=== PATIENT | female | born 1950 | race African-American/Black ===

== ENCOUNTER 2019-12-08 12:18 | Emergency (ER) | payer OTHER ==
[~2019-12-08] VITALS: Ht 162.6 cm; Wt 77.9 kg
[2019-12-08 12:19] VITALS: BP 134/69
[2019-12-08] MEDS ORDERED: GLIP10TA PO (13:06)
[2019-12-08] MEDS ORDERED: selenium PO (13:06)
[2019-12-08] MEDS ORDERED: D 50CAP2 PO (13:06)
[2019-12-08] MEDS ORDERED: ANAS1TAB2 PO (13:06)
[2019-12-08] MEDS ORDERED: JANU100T PO (13:06)
[2019-12-08] MEDS ORDERED: METF10004 PO (13:06)
[2019-12-08] MEDS ORDERED: OMEG1CAP16 PO (13:06)
[2019-12-08] MEDS ORDERED: ALPH600C PO (13:06)
[2019-12-08] MEDS ORDERED: [UNRECOGNIZED DRUG - CODE] PO (13:06)
[2019-12-08] MEDS ORDERED: IBUPROFEN 800 MG TAB PO ONE (13:30)
[2019-12-08 13:54] LABS: BASO % 0.5 % (0.0-1.0); EOS # 0.1 10^3/uL (0.0-0.5); EOS % 1.1 % (0.0-3.0); HEMATOCRIT 36.7 % (36.0-47.0); HEMOGLOBIN 11.5 g/dl (12.0-15.5); LYMPH % 21.8 % (24.0-44.0); MEAN CORPUSCULAR HEMOGLOBIN 27.8 pg (27.0-33.0); MEAN CORPUSCULAR HGB CONC 31.3 g/dl (32.0-36.5); MEAN CORPUSCULAR VOLUME 88.6 fl (80.0-96.0); MONO # 0.6 10^3/uL (0.0-0.8); MONO % 12.6 % (0.0-5.0); NEUTROPHILS # 2.8 10^3/uL (1.5-8.5); NEUTROPHILS % 63.3 % (36.0-66.0); PLATELET COUNT, AUTOMATED 181 10^3/uL (150-450); RED BLOOD COUNT 4.14 10^6/uL (4.00-5.40); WHITE BLOOD COUNT 4.4 10^3/uL (4.0-10.0)
[2019-12-08 14:24] LABS: ALBUMIN 3.7 GM/DL (3.2-5.2); ALT/SGPT 14 U/L (12-78); BILIRUBIN,DIRECT 0.2 MG/DL (0.0-0.2); BILIRUBIN,TOTAL 1.1 MG/DL (0.2-1.0); BLOOD UREA NITROGEN 11 MG/DL (7-18); CALCIUM LEVEL 9.8 MG/DL (8.8-10.2); CARBON DIOXIDE LEVEL 29 MEQ/L (21-32); CHLORIDE LEVEL 101 MEQ/L (98-107); CREATININE FOR GFR 0.85 MG/DL (0.55-1.30); GLOMERULAR FILTRATION RATE > 60.0 (>45); GLUCOSE, FASTING 205 MG/DL (70-100); POTASSIUM SERUM 3.9 MEQ/L (3.5-5.1); SODIUM LEVEL 136 MEQ/L (136-145); TOTAL PROTEIN 8.1 GM/DL (6.4-8.2)
[2019-12-08] MEDS ORDERED: NYST50SS PO (14:30)
[2019-12-08] MEDS ORDERED: VALT1TAB PO (14:30)
== END 2019-12-08 14:41 | disposition home or self-care (01) ==
LOC: M ED 12:18
DX: B02.9 Zoster without complications (principal); B37.0 Candidal stomatitis; E11.9 Type 2 diabetes mellitus without complications; Z85.3 Personal history of malignant neoplasm of breast; Z79.84 Long term (current) use of oral hypoglycemic drugs; Z79.899 Other long term (current) drug therapy

== ENCOUNTER → 2020-03-09 | Outpatient (CLI) | payer MEDICARE, OTHER ==
[~2020-03-09] MED LIST: ALPH600C PO; ANAS1TAB2 PO; D 50CAP2 PO; GLIP10TA PO; JANU100T PO; METF10004 PO; NYST50SS PO; OMEG1CAP16 PO; VALT1TAB PO; [UNRECOGNIZED DRUG - CODE] PO; selenium PO
== END ==
LOC: M LABSMTC 10:58
PROVIDERS: ATTEND Anesthesiology
DX: Z01.812 Encounter for preprocedural laboratory examination (principal); Z20.828 Contact with and (suspected) exposure to other viral communicable diseases

== ENCOUNTER 2020-03-14 10:15 | Day surgery (SDC) | payer MEDICARE, OTHER ==
[~2020-03-14] VITALS: Ht 162.6 cm; Wt 82.1 kg
[~2020-03-14 10:15] MED LIST changes: +BSS IRR 500ML/OMIDRIA 4ML IRR BAG (OR ONLY) As Ordered ONE; +CEFUROXIME 1MG/0.1ML INTRACAMERAL INJ As Ordered ONE; +DUOVISC (0.50ML VISCOAT/0.55ML PROVISC) OPHTH KIT As Ordered ONE; +OFLOXACIN 0.3 % (OCUFLOX) OPTH SOL 5ML OS ONE; +PHENYLEPHRINE 2.5% OPHTH SOL 2ML OS ONE; +POVIDONE-IODINE 5% OPHTH PREP SOL 30ML As Ordered ONE; +PROPARACAINE 0.5% OPHTH SOL 15ML OS ONE; +TROPICAMIDE 1% OPHTH SOLN 2ML OS ONE
[2020-03-14] MEDS ORDERED: fentaNYL 100 MCG/2 ML INJECTION (J3010) As Ordered ONE (10:53)
[2020-03-14] MEDS ORDERED: MIDAZOLAM INJ 2MG/2ML VIAL (J2250 PER 1MG) As Ordered ONE (10:53)
[2020-03-14 14:48] VITALS: BP 137/74
--- NOTE | 2020-03-15 08:38 | RO ---
OPERATIVE NOTE DATE OF OPERATION: 03/14/2020 PREOPERATIVE DIAGNOSIS: 1. Visually significant nuclear sclerotic cataract, left eye. POSTOPERATIVE DIAGNOSIS: 1. Visually significant nuclear sclerotic cataract, left eye. PROCEDURE: 1. Cataract extraction with use of phacoemulsification, and placement of intraocular lens, AU00T0 22.0, left eye. SURGEON: Patrick Keith DO ANESTHESIA: Local (Omidria with MAC) COMPLICATIONS: None POSTOPERATIVE CONDITION: Stable INDICATIONS FOR SURGERY: 1. Blurred vision affecting patient's activities of daily living. DESCRIPTION OF PROCEDURE: The patient was seen in the preoperative area and properly identified. The correct operative eye was identified and marked. The patient received topical anesthetic, antibiotics, and topical dilating drops. The patient was then transferred to the operating room. The correct side was re-identified and a time-out was performed. The eye was prepped and draped in a sterile fashion. The eyelids were isolated with Tegaderm tape and the lids were held open with an adjustable speculum. A 1.0mm paracentesis incision was made. Omidria was then injected into the anterior chamber. Viscoelastic was then injected into the anterior chamber through the paracentesis. Using a 2.4mm sharp-tipped keratome, the anterior chamber was entered via a temporal clear cornea incision. A continuous curvilinear capsulorrhexis was created with Utrata forceps. Hydrodissection was performed with BSS on a blunt cannula until the nucleus was able to rotate freely. The crystalline lens was phacoemulsified and aspirated. Irrigation/aspiration was used to remove the cortical material Cohesive viscoelastic was placed into the capsular bag to deepen it. The implant was placed into the capsular bag and allowed to unfold. Placement was confirmed by visualizing the anterior capsulorrhexis. Irrigation/aspiration was used to remove the viscoelastic. The clear corneal incision was hydrated with BSS on a blunt cannula. The lens was well positioned. Intracameral antibiotic was injected into the anterior chamber. The incisions were then tested for leaks and found to be negative. The eye was then palpated for appropriate pressure and adjusted accordingly with BSS. The eyelid speculum was then carefully removed. A shield was placed over the eye. The patient tolerated the procedure well and was discharge to the recovery unit in a stable condition. REID
== END 2020-03-14 15:30 | disposition home or self-care (01) ==
LOC: M SDC 10:15
PROVIDERS: ATTEND Ophthalmology
DX: H25.12 Age-related nuclear cataract, left eye (principal); E11.9 Type 2 diabetes mellitus without complications; M06.9 Rheumatoid arthritis, unspecified; Z85.3 Personal history of malignant neoplasm of breast; Z92.21 Personal history of antineoplastic chemotherapy; Z92.3 Personal history of irradiation; Z79.899 Other long term (current) drug therapy
CPT/HCPCS: 66984; J1097; J2250; J3010; V2632

== ENCOUNTER → 2020-03-16 | Outpatient (CLI) | payer MEDICARE, OTHER ==
[~2020-03-16] MED LIST changes: -BSS IRR 500ML/OMIDRIA 4ML IRR BAG (OR ONLY) As Ordered ONE; -CEFUROXIME 1MG/0.1ML INTRACAMERAL INJ As Ordered ONE; -DUOVISC (0.50ML VISCOAT/0.55ML PROVISC) OPHTH KIT As Ordered ONE; -OFLOXACIN 0.3 % (OCUFLOX) OPTH SOL 5ML OS ONE; -PHENYLEPHRINE 2.5% OPHTH SOL 2ML OS ONE; -POVIDONE-IODINE 5% OPHTH PREP SOL 30ML As Ordered ONE; -PROPARACAINE 0.5% OPHTH SOL 15ML OS ONE; -TROPICAMIDE 1% OPHTH SOLN 2ML OS ONE
== END ==
LOC: M LABSMTC 09:30
PROVIDERS: ATTEND Anesthesiology
DX: Z01.812 Encounter for preprocedural laboratory examination (principal); Z20.822 Contact with and (suspected) exposure to COVID-19

== ENCOUNTER 2020-03-21 09:21 | Day surgery (SDC) | payer MEDICARE, OTHER ==
[~2020-03-21] VITALS: Ht 160 cm; Wt 82.6 kg
[~2020-03-21 09:21] MED LIST changes: +CEFUROXIME 1MG/0.1ML INTRACAMERAL INJ As Ordered ONE; +DUOVISC (0.50ML VISCOAT/0.55ML PROVISC) OPHTH KIT As Ordered ONE; +MIDAZOLAM INJ 2MG/2ML VIAL (J2250 PER 1MG) As Ordered ONE; +OFLOXACIN 0.3 % (OCUFLOX) OPTH SOL 5ML OD ONE; +PHENYLEPHRINE 2.5% OPHTH SOL 2ML OD ONE; +POVIDONE-IODINE 5% OPHTH PREP SOL 30ML As Ordered ONE; +PROPARACAINE 0.5% OPHTH SOL 15ML OD ONE; +TROPICAMIDE 1% OPHTH SOLN 2ML OD ONE; +fentaNYL 100 MCG/2 ML INJECTION (J3010) As Ordered ONE
[2020-03-21] MEDS ORDERED: BSS IRR 500ML/OMIDRIA 4ML IRR BAG (OR ONLY) As Ordered ONE (11:00)
[2020-03-21 13:20] VITALS: BP 139/86
--- NOTE | 2020-03-22 07:45 | RO ---
OPERATIVE NOTE PREOPERATIVE DIAGNOSIS: 1. Visually significant nuclear sclerotic cataract, right eye. POSTOPERATIVE DIAGNOSIS: 1. Visually significant nuclear sclerotic cataract, right eye. PROCEDURE: 1. Cataract extraction with use of phacoemulsification, and placement of intraocular lens, AU00T0, D 22.0, right eye. SURGEON: Patrick Keith DO ANESTHESIA: Local (Omidria with MAC) COMPLICATIONS: None POSTOPERATIVE CONDITION: Stable INDICATIONS FOR SURGERY: 1. Blurred vision affecting patient's activities of daily living. DESCRIPTION OF PROCEDURE: The patient was seen in the preoperative area and properly identified. The correct operative eye was identified and marked. The patient received topical anesthetic, antibiotics, and topical dilating drops. The patient was then transferred to the operating room. The correct side was re-identified and a time-out was performed. The eye was prepped and draped in a sterile fashion. The eyelids were isolated with Tegaderm tape and the lids were held open with an adjustable speculum. A 1.0mm paracentesis incision was made. Omidria was then injected into the anterior chamber. Viscoelastic was then injected into the anterior chamber through the paracentesis. Using a 2.4mm sharp-tipped keratome, the anterior chamber was entered via a temporal clear cornea incision. A continuous curvilinear capsulorrhexis was created with Utrata forceps. Hydrodissection was performed with BSS on a blunt cannula until the nucleus was able to rotate freely. The crystalline lens was phacoemulsified and aspirated. Irrigation/aspiration was used to remove the cortical material Cohesive viscoelastic was placed into the capsular bag to deepen it. The implant was placed into the capsular bag and allowed to unfold. Placement was confirmed by visualizing the anterior capsulorrhexis. Irrigation/aspiration was used to remove the viscoelastic. The clear corneal incision was hydrated with BSS on a blunt cannula. The lens was well positioned. Intracameral antibiotic was injected into the anterior chamber. The incisions were then tested for leaks and found to be negative. The eye was then palpated for appropriate pressure and adjusted accordingly with BSS. The eyelid speculum was then carefully removed. A shield was placed over the eye. The patient tolerated the procedure well and was discharge to the recovery unit in a stable condition. REID
== END 2020-03-21 14:05 | disposition home or self-care (01) ==
LOC: M SDC 09:21
PROVIDERS: ATTEND Ophthalmology
DX: H25.11 Age-related nuclear cataract, right eye (principal); E11.9 Type 2 diabetes mellitus without complications; M06.9 Rheumatoid arthritis, unspecified; Z85.3 Personal history of malignant neoplasm of breast; Z92.21 Personal history of antineoplastic chemotherapy; Z92.3 Personal history of irradiation; Z79.84 Long term (current) use of oral hypoglycemic drugs; Z79.899 Other long term (current) drug therapy
CPT/HCPCS: 66984; J1097; J2250; J3010; V2632

== ENCOUNTER → 2020-05-17 | Outpatient (CLI) | payer OTHER ==
[~2020-05-17] MED LIST changes: -CEFUROXIME 1MG/0.1ML INTRACAMERAL INJ As Ordered ONE; -DUOVISC (0.50ML VISCOAT/0.55ML PROVISC) OPHTH KIT As Ordered ONE; +GLYCCAP PO; -MIDAZOLAM INJ 2MG/2ML VIAL (J2250 PER 1MG) As Ordered ONE; -OFLOXACIN 0.3 % (OCUFLOX) OPTH SOL 5ML OD ONE; -PHENYLEPHRINE 2.5% OPHTH SOL 2ML OD ONE; -POVIDONE-IODINE 5% OPHTH PREP SOL 30ML As Ordered ONE; -PROPARACAINE 0.5% OPHTH SOL 15ML OD ONE; -TROPICAMIDE 1% OPHTH SOLN 2ML OD ONE; +TRUL0.5I SC; -fentaNYL 100 MCG/2 ML INJECTION (J3010) As Ordered ONE
--- NOTE | 2020-05-24 09:44 | REPMRS ---
Patient History The patient states she had a clinical breast exam in 05/2020 Patient is postmenopausal, has history of breast cancer at age 67, has history of cancer in the left breast at age 67, and had previous chemotherapy at age 67. Family history of breast cancer at age 51 in sister, prostate cancer at age 68 in brother. Malignant mastectomy of the left breast, 2019. Radiation therapy of the left breast. Digital Woman Screen Mammo: May 17, 2020 - Exam #: [id number] CC and MLO view(s) were taken of the right breast. Technologist: Traci Hdz, Technologist Prior study comparison: August 17, 2019, right breast diagnostic unilateral mammo, performed at [facility]. FINDINGS: There are scattered fibroglandular densities. There has been no change in the appearance of the right breast parenchyma in the interval since the prior examination. No mass, architectural distortion, or microcalcific grouping has developed. No suspicious finding. 3-D tomosynthesis shows no additional findings. Assessment: BI-RADS/ACR category 2 mammogram. Benign Findings. Recommendation Routine screening mammogram of the right breast in 1 year. This mammogram was interpreted with the aid of an FDA-approved computer-aided dectection system. Electronically Signed By: Skyler Combs MD 05/24/20 0943
== END ==
LOC: M WHC 12:00
PROVIDERS: ATTEND Specialist
DX: Z12.31 Encounter for screening mammogram for malignant neoplasm of breast (principal); N64.89 Other specified disorders of breast; Z85.3 Personal history of malignant neoplasm of breast; Z80.3 Family history of malignant neoplasm of breast; Z90.12 Acquired absence of left breast and nipple; Z92.21 Personal history of antineoplastic chemotherapy

== ENCOUNTER → 2020-06-11 | Outpatient (REF) | payer OTHER ==
[2020-06-11 18:10] LABS: BASO % 0.6 % (0.0-1.0); EOS # 0.1 10^3/uL (0.0-0.5); EOS % 2.1 % (0.0-3.0); HEMATOCRIT 36.3 % (36.0-47.0); HEMOGLOBIN 11.1 g/dl (12.0-15.5); LYMPH # 1.5 10^3/uL (1.5-5.0); LYMPH % 31.5 % (24.0-44.0); MEAN CORPUSCULAR HEMOGLOBIN 27.5 pg (27.0-33.0); MEAN CORPUSCULAR HGB CONC 30.6 g/dl (32.0-36.5); MEAN CORPUSCULAR VOLUME 89.9 fl (80.0-96.0); MONO # 0.5 10^3/uL (0.0-0.8); MONO % 10.5 % (2.0-8.0); NEUTROPHILS # 2.6 10^3/uL (1.5-8.5); NEUTROPHILS % 54.7 % (36.0-66.0); PLATELET COUNT, AUTOMATED 201 10^3/uL (150-450); RED BLOOD COUNT 4.04 10^6/uL (4.00-5.40); WHITE BLOOD COUNT 4.8 10^3/uL (4.0-10.0)
[2020-06-11 18:12] LABS: APPEARANCE, URINE CLEAR (CLEAR); BACTERIA, URINE AUTO NEGATIVE (NEGATIVE); BILIRUBIN, URINE AUTO NEGATIVE (NEGATIVE); BLOOD, URINE BLOOD NEGATIVE (NEGATIVE); COLOR, URINE YELLOW (YELLOW); GLUCOSE, URINE (UA) AUTO 2+ mg/dL (NEGATIVE); KETONE, URINE AUTO NEGATIVE (NEGATIVE); LEUKOCYTE ESTERASE, URINE AUTO NEGATIVE (NEGATIVE); NITRITE, URINE AUTO NEGATIVE (NEGATIVE); PROTEIN, URINE AUTO NEGATIVE (NEGATIVE); RBC, URINE AUTO 0 /HPF (0-3); SPECIFIC GRAVITY URINE AUTO 1.024 (1.002-1.035); SQUAMOUS EPITHELIAL CELL UR AU 0 /HPF (0-6); UROBILINOGEN, URINE AUTO 0.2 mg/dL (0.0-2.0); WBC, URINE AUTO 1 /HPF (0-3)
[2020-06-11 18:41] LABS: ERYTHROCYTE SEDIMENTATION RATE 60 mm/hr (0-30)
[2020-06-11 18:42] LABS: TOTAL PROTEIN,RANDOM URINE 13.1 MG/DL (0.0-12.0)
[2020-06-11 18:59] LABS: ALBUMIN 3.9 GM/DL (3.2-5.2); ALT/SGPT 15 U/L (12-78); BILIRUBIN,DIRECT 0.1 MG/DL (0.0-0.2); BILIRUBIN,TOTAL 0.5 MG/DL (0.2-1.0); BLOOD UREA NITROGEN 14 MG/DL (7-18); C REACTIVE PROTEIN QUANTITATIV 1.33 MG/DL (0.00-0.30); CALCIUM LEVEL 9.8 MG/DL (8.8-10.2); CARBON DIOXIDE LEVEL 30 MEQ/L (21-32); CHLORIDE LEVEL 104 MEQ/L (98-107); COMPLEMENT C3 135 MG/DL (90-180); COMPLEMENT C4 39 MG/DL (10-40); CREATININE FOR GFR 0.76 MG/DL (0.55-1.30); GLOMERULAR FILTRATION RATE > 60.0 (>45); GLUCOSE, FASTING 194 MG/DL (70-100); POTASSIUM SERUM 4.2 MEQ/L (3.5-5.1); RHEUMATOID FACTOR QUANT < 10.0 IU/ML (<15.0); SODIUM LEVEL 137 MEQ/L (136-145); TOTAL PROTEIN 8.3 GM/DL (6.4-8.2)
[2020-06-13 12:31] LABS: DRVV SCREEN 40.2 SEC
== END ==
LOC: M SFHCRHEU 15:16
PROVIDERS: ATTEND Internal Medicine
DX: M06.4 Inflammatory polyarthropathy (principal)

== ENCOUNTER → 2020-08-15 | Outpatient (CLI) | payer OTHER, MEDICARE ==
[~2020-08-15] MED LIST changes: +ATOR40TA75 PO; +LEFL20TA10 PO; +SELE100T PO
[2020-08-15 11:37] LABS: BASO % 0.7 % (0.0-1.0); EOS # 0.1 10^3/uL (0.0-0.5); EOS % 2.2 % (0.0-3.0); HEMATOCRIT 36.8 % (36.0-47.0); LYMPH # 1.5 10^3/uL (1.5-5.0); LYMPH % 34.4 % (24.0-44.0); MEAN CORPUSCULAR HEMOGLOBIN 27.4 pg (27.0-33.0); MEAN CORPUSCULAR HGB CONC 29.9 g/dl (32.0-36.5); MEAN CORPUSCULAR VOLUME 91.5 fl (80.0-96.0); MONO # 0.4 10^3/uL (0.0-0.8); MONO % 8.8 % (2.0-8.0); NEUTROPHILS # 2.4 10^3/uL (1.5-8.5); PLATELET COUNT, AUTOMATED 210 10^3/uL (150-450); RED BLOOD COUNT 4.02 10^6/uL (4.00-5.40); WHITE BLOOD COUNT 4.5 10^3/uL (4.0-10.0)
[2020-08-15 12:38] LABS: ERYTHROCYTE SEDIMENTATION RATE 52 mm/hr (0-30)
[2020-08-15 13:26] LABS: ALBUMIN 3.5 GM/DL (3.2-5.2); ALT/SGPT 19 U/L (12-78); BILIRUBIN,DIRECT 0.2 MG/DL (0.0-0.2); BILIRUBIN,TOTAL 0.8 MG/DL (0.2-1.0); BLOOD UREA NITROGEN 12 MG/DL (7-18); C REACTIVE PROTEIN QUANTITATIV 0.73 MG/DL (0.00-0.30); CALCIUM LEVEL 9.3 MG/DL (8.8-10.2); CARBON DIOXIDE LEVEL 30 MEQ/L (21-32); CHLORIDE LEVEL 104 MEQ/L (98-107); CREATININE FOR GFR 0.68 MG/DL (0.55-1.30); GLOMERULAR FILTRATION RATE > 60.0 (>45); GLUCOSE, FASTING 181 MG/DL (70-100); POTASSIUM SERUM 4.2 MEQ/L (3.5-5.1); SODIUM LEVEL 139 MEQ/L (136-145); TOTAL PROTEIN 7.7 GM/DL (6.4-8.2)
== END ==
LOC: M WUC 09:16
PROVIDERS: ATTEND Internal Medicine
DX: M06.9 Rheumatoid arthritis, unspecified (principal)

== ENCOUNTER → 2020-09-12 | Outpatient (CLI) | payer MEDICARE, OTHER ==
[~2020-09-12] MED LIST changes: +ARIM1TAB5 PO; +LEFL10TA12 PO; -LEFL20TA10 PO
[2020-09-12 19:35] LABS: BASO % 0.4 % (0.0-1.0); EOS # 0.1 10^3/uL (0.0-0.5); EOS % 2.2 % (0.0-3.0); HEMATOCRIT 35.9 % (36.0-47.0); LYMPH # 1.5 10^3/uL (1.5-5.0); LYMPH % 31.2 % (24.0-44.0); MEAN CORPUSCULAR HEMOGLOBIN 27.6 pg (27.0-33.0); MEAN CORPUSCULAR HGB CONC 30.6 g/dl (32.0-36.5); MONO # 0.5 10^3/uL (0.0-0.8); MONO % 9.7 % (2.0-8.0); NEUTROPHILS # 2.8 10^3/uL (1.5-8.5); NEUTROPHILS % 56.3 % (36.0-66.0); PLATELET COUNT, AUTOMATED 200 10^3/uL (150-450); RED BLOOD COUNT 3.99 10^6/uL (4.00-5.40); WHITE BLOOD COUNT 4.9 10^3/uL (4.0-10.0)
[2020-09-12 19:57] LABS: ALBUMIN 3.5 GM/DL (3.2-5.2); ALT/SGPT 20 U/L (12-78); BILIRUBIN,DIRECT 0.1 MG/DL (0.0-0.2); BILIRUBIN,TOTAL 0.5 MG/DL (0.2-1.0); BLOOD UREA NITROGEN 10 MG/DL (7-18); C REACTIVE PROTEIN QUANTITATIV 0.49 MG/DL (0.00-0.30); CALCIUM LEVEL 9.5 MG/DL (8.8-10.2); CARBON DIOXIDE LEVEL 31 MEQ/L (21-32); CHLORIDE LEVEL 104 MEQ/L (98-107); GLOMERULAR FILTRATION RATE > 60.0 (>45); GLUCOSE, FASTING 216 MG/DL (70-100); POTASSIUM SERUM 4.5 MEQ/L (3.5-5.1); SODIUM LEVEL 141 MEQ/L (136-145); TOTAL PROTEIN 7.7 GM/DL (6.4-8.2)
[2020-09-12 21:40] LABS: ERYTHROCYTE SEDIMENTATION RATE 46 mm/hr (0-30)
== END ==
LOC: M WUC 15:45
PROVIDERS: ATTEND Internal Medicine
DX: M06.9 Rheumatoid arthritis, unspecified (principal)

== ENCOUNTER → 2020-10-10 | Outpatient (CLI) | payer MEDICARE ==
[~2020-10-10] MED LIST changes: -ARIM1TAB5 PO; -LEFL10TA12 PO; +LEFL20TA10 PO
[2020-10-10 19:06] LABS: BASO % 0.4 % (0.0-1.0); EOS # 0.1 10^3/uL (0.0-0.5); HEMATOCRIT 36.9 % (36.0-47.0); HEMOGLOBIN 11.3 g/dl (12.0-15.5); LYMPH # 1.5 10^3/uL (1.5-5.0); LYMPH % 29.4 % (24.0-44.0); MEAN CORPUSCULAR HEMOGLOBIN 27.5 pg (27.0-33.0); MEAN CORPUSCULAR HGB CONC 30.6 g/dl (32.0-36.5); MEAN CORPUSCULAR VOLUME 89.8 fl (80.0-96.0); MONO # 0.4 10^3/uL (0.0-0.8); MONO % 8.5 % (2.0-8.0); NEUTROPHILS % 59.1 % (36.0-66.0); PLATELET COUNT, AUTOMATED 220 10^3/uL (150-450); RED BLOOD COUNT 4.11 10^6/uL (4.00-5.40)
[2020-10-10 19:12] LABS: ALBUMIN 3.4 GM/DL (3.2-5.2); ALT/SGPT 20 U/L (12-78); BILIRUBIN,DIRECT 0.2 MG/DL (0.0-0.2); BILIRUBIN,TOTAL 0.6 MG/DL (0.2-1.0); BLOOD UREA NITROGEN 11 MG/DL (7-18); C REACTIVE PROTEIN QUANTITATIV 0.62 MG/DL (0.00-0.30); CALCIUM LEVEL 8.8 MG/DL (8.8-10.2); CARBON DIOXIDE LEVEL 32 MEQ/L (21-32); CHLORIDE LEVEL 102 MEQ/L (98-107); CREATININE FOR GFR 0.83 MG/DL (0.55-1.30); GLOMERULAR FILTRATION RATE > 60.0 (>45); GLUCOSE, FASTING 316 MG/DL (70-100); POTASSIUM SERUM 4.2 MEQ/L (3.5-5.1); SODIUM LEVEL 137 MEQ/L (136-145); TOTAL PROTEIN 7.4 GM/DL (6.4-8.2)
[2020-10-10 19:34] LABS: ERYTHROCYTE SEDIMENTATION RATE 48 mm/hr (0-30)
== END ==
LOC: M WUC 15:25
PROVIDERS: ATTEND Internal Medicine
DX: M06.9 Rheumatoid arthritis, unspecified (principal)

== ENCOUNTER → 2020-11-15 | Outpatient (CLI) | payer MEDICARE ==
[2020-11-15 19:53] LABS: BASO % 0.4 % (0.0-1.0); EOS # 0.1 10^3/uL (0.0-0.5); EOS % 1.5 % (0.0-3.0); HEMATOCRIT 36.8 % (36.0-47.0); HEMOGLOBIN 11.1 g/dl (12.0-15.5); LYMPH # 1.6 10^3/uL (1.5-5.0); LYMPH % 34.2 % (24.0-44.0); MEAN CORPUSCULAR HEMOGLOBIN 27.2 pg (27.0-33.0); MEAN CORPUSCULAR HGB CONC 30.2 g/dl (32.0-36.5); MEAN CORPUSCULAR VOLUME 90.2 fl (80.0-96.0); MONO # 0.5 10^3/uL (0.0-0.8); MONO % 10.4 % (2.0-8.0); NEUTROPHILS # 2.5 10^3/uL (1.5-8.5); NEUTROPHILS % 53.1 % (36.0-66.0); PLATELET COUNT, AUTOMATED 197 10^3/uL (150-450); RED BLOOD COUNT 4.08 10^6/uL (4.00-5.40); WHITE BLOOD COUNT 4.7 10^3/uL (4.0-10.0)
[2020-11-15 20:14] LABS: ERYTHROCYTE SEDIMENTATION RATE 45 mm/hr (0-30)
[2020-11-15 20:19] LABS: ALBUMIN 3.6 GM/DL (3.2-5.2); ALT/SGPT 19 U/L (12-78); BILIRUBIN,DIRECT 0.2 MG/DL (0.0-0.2); BILIRUBIN,TOTAL 0.8 MG/DL (0.2-1.0); BLOOD UREA NITROGEN 11 MG/DL (7-18); C REACTIVE PROTEIN QUANTITATIV 0.56 MG/DL (0.00-0.30); CALCIUM LEVEL 9.3 MG/DL (8.8-10.2); CARBON DIOXIDE LEVEL 33 MEQ/L (21-32); CHLORIDE LEVEL 103 MEQ/L (98-107); CREATININE FOR GFR 0.75 MG/DL (0.55-1.30); GLOMERULAR FILTRATION RATE > 60.0 (>45); GLUCOSE, FASTING 258 MG/DL (70-100); POTASSIUM SERUM 3.9 MEQ/L (3.5-5.1); SODIUM LEVEL 138 MEQ/L (136-145); TOTAL PROTEIN 7.6 GM/DL (6.4-8.2)
== END ==
LOC: M WUC 14:59
PROVIDERS: ATTEND Internal Medicine
DX: M06.9 Rheumatoid arthritis, unspecified (principal)

== ENCOUNTER → 2020-12-03 | Outpatient (REF) | payer MEDICARE, OTHER ==
[~2020-12-03] MED LIST changes: +ARIM1TAB5 PO; +LEFL10TA12 PO; -LEFL20TA10 PO
[2020-12-03 16:48] LABS: BASO % 0.4 % (0.0-1.0); EOS # 0.1 10^3/uL (0.0-0.5); EOS % 1.7 % (0.0-3.0); HEMOGLOBIN 11.6 g/dl (12.0-15.5); LYMPH # 1.5 10^3/uL (1.5-5.0); LYMPH % 31.3 % (24.0-44.0); MEAN CORPUSCULAR HEMOGLOBIN 26.9 pg (27.0-33.0); MEAN CORPUSCULAR HGB CONC 30.5 g/dl (32.0-36.5); MEAN CORPUSCULAR VOLUME 88.2 fl (80.0-96.0); MONO # 0.4 10^3/uL (0.0-0.8); NEUTROPHILS # 2.8 10^3/uL (1.5-8.5); NEUTROPHILS % 58.2 % (36.0-66.0); PLATELET COUNT, AUTOMATED 201 10^3/uL (150-450); RED BLOOD COUNT 4.31 10^6/uL (4.00-5.40); WHITE BLOOD COUNT 4.7 10^3/uL (4.0-10.0)
[2020-12-03 17:11] LABS: ALBUMIN 3.7 GM/DL (3.2-5.2); ALT/SGPT 20 U/L (12-78); BILIRUBIN,DIRECT 0.2 MG/DL (0.0-0.2); BILIRUBIN,TOTAL 0.8 MG/DL (0.2-1.0); BLOOD UREA NITROGEN 11 MG/DL (7-18); C REACTIVE PROTEIN QUANTITATIV 0.86 MG/DL (0.00-0.30); CALCIUM LEVEL 9.9 MG/DL (8.8-10.2); CARBON DIOXIDE LEVEL 33 MEQ/L (21-32); CHLORIDE LEVEL 100 MEQ/L (98-107); CREATININE FOR GFR 0.89 MG/DL (0.55-1.30); GLOMERULAR FILTRATION RATE > 60.0 (>45); GLUCOSE, FASTING 317 MG/DL (70-100); SODIUM LEVEL 141 MEQ/L (136-145); TOTAL PROTEIN 8.1 GM/DL (6.4-8.2)
[2020-12-03 17:21] LABS: ERYTHROCYTE SEDIMENTATION RATE 49 mm/hr (0-30)
== END ==
LOC: M SFHCRHEU 12:09
PROVIDERS: ATTEND Internal Medicine
DX: M06.9 Rheumatoid arthritis, unspecified (principal)
CPT/HCPCS: 80048; 80076; 85025; 85652; 86140; G0463

== ENCOUNTER → 2021-01-09 | Outpatient (CLI) | payer OTHER, MEDICARE ==
[2021-01-09 15:55] LABS: BASO % 0.5 % (0.0-1.0); EOS # 0.1 10^3/uL (0.0-0.5); EOS % 1.7 % (0.0-3.0); HEMATOCRIT 38.7 % (36.0-47.0); HEMOGLOBIN 11.6 g/dl (12.0-15.5); LYMPH # 1.8 10^3/uL (1.5-5.0); LYMPH % 42.9 % (24.0-44.0); MEAN CORPUSCULAR HEMOGLOBIN 26.7 pg (27.0-33.0); MEAN CORPUSCULAR VOLUME 89.2 fl (80.0-96.0); MONO # 0.5 10^3/uL (0.0-0.8); MONO % 12.3 % (2.0-8.0); NEUTROPHILS # 1.8 10^3/uL (1.5-8.5); NEUTROPHILS % 42.1 % (36.0-66.0); PLATELET COUNT, AUTOMATED 187 10^3/uL (150-450); RED BLOOD COUNT 4.34 10^6/uL (4.00-5.40); WHITE BLOOD COUNT 4.2 10^3/uL (4.0-10.0)
[2021-01-09 16:22] LABS: ALBUMIN 3.7 GM/DL (3.2-5.2); ALT/SGPT 19 U/L (12-78); BILIRUBIN,DIRECT 0.3 MG/DL (0.0-0.2); BLOOD UREA NITROGEN 10 MG/DL (7-18); C REACTIVE PROTEIN QUANTITATIV 0.39 MG/DL (0.00-0.30); CALCIUM LEVEL 9.8 MG/DL (8.8-10.2); CARBON DIOXIDE LEVEL 30 MEQ/L (21-32); CHLORIDE LEVEL 103 MEQ/L (98-107); CREATININE FOR GFR 0.84 MG/DL (0.55-1.30); GLOMERULAR FILTRATION RATE > 60.0 (>45); GLUCOSE, FASTING 245 MG/DL (70-100); POTASSIUM SERUM 4.4 MEQ/L (3.5-5.1); SODIUM LEVEL 137 MEQ/L (136-145); TOTAL PROTEIN 7.7 GM/DL (6.4-8.2)
[2021-01-09 16:24] LABS: ERYTHROCYTE SEDIMENTATION RATE 41 mm/hr (0-30)
== END ==
LOC: M WUC 13:29
PROVIDERS: ATTEND Internal Medicine
DX: M06.9 Rheumatoid arthritis, unspecified (principal)

== ENCOUNTER → 2021-02-06 | Outpatient (CLI) | payer OTHER, MEDICARE ==
[2021-02-06 16:00] LABS: BASO % 0.5 % (0.0-1.0); EOS # 0.1 10^3/uL (0.0-0.5); EOS % 1.9 % (0.0-3.0); HEMATOCRIT 37.1 % (36.0-47.0); HEMOGLOBIN 11.3 g/dl (12.0-15.5); LYMPH # 1.4 10^3/uL (1.5-5.0); MEAN CORPUSCULAR HEMOGLOBIN 27.1 pg (27.0-33.0); MEAN CORPUSCULAR HGB CONC 30.5 g/dl (32.0-36.5); MONO # 0.4 10^3/uL (0.0-0.8); MONO % 10.3 % (2.0-8.0); NEUTROPHILS # 2.2 10^3/uL (1.5-8.5); NEUTROPHILS % 52.8 % (36.0-66.0); PLATELET COUNT, AUTOMATED 185 10^3/uL (150-450); RED BLOOD COUNT 4.17 10^6/uL (4.00-5.40); WHITE BLOOD COUNT 4.2 10^3/uL (4.0-10.0)
[2021-02-06 16:38] LABS: ALBUMIN 3.5 GM/DL (3.2-5.2); ALT/SGPT 19 U/L (12-78); BILIRUBIN,DIRECT 0.2 MG/DL (0.0-0.2); BILIRUBIN,TOTAL 0.9 MG/DL (0.2-1.0); BLOOD UREA NITROGEN 13 MG/DL (7-18); C REACTIVE PROTEIN QUANTITATIV 0.57 MG/DL (0.00-0.30); CALCIUM LEVEL 9.7 MG/DL (8.8-10.2); CARBON DIOXIDE LEVEL 30 MEQ/L (21-32); CHLORIDE LEVEL 102 MEQ/L (98-107); CREATININE FOR GFR 0.84 MG/DL (0.55-1.30); GLOMERULAR FILTRATION RATE > 60.0 (>45); GLUCOSE, FASTING 319 MG/DL (70-100); SODIUM LEVEL 137 MEQ/L (136-145); TOTAL PROTEIN 7.5 GM/DL (6.4-8.2)
[2021-02-06 17:08] LABS: ERYTHROCYTE SEDIMENTATION RATE 31 mm/hr (0-30)
== END ==
LOC: M WUC 12:59
PROVIDERS: ATTEND Internal Medicine
DX: M06.9 Rheumatoid arthritis, unspecified (principal)

== ENCOUNTER → 2021-02-18 | Outpatient (CLI) | payer MEDICARE, OTHER | LOC: M WHC 11:39 | PROVIDERS: ATTEND Internal Medicine | DX: M85.851 Other specified disorders of bone density and structure, right thigh (principal) ==

== ENCOUNTER → 2021-02-25 | Outpatient (CLI) | payer OTHER ==
[2021-02-25 16:19] LABS: BASO % 0.4 % (0.0-1.0); EOS # 0.1 10^3/uL (0.0-0.5); HEMATOCRIT 37.8 % (36.0-47.0); HEMOGLOBIN 11.5 g/dl (12.0-15.5); LYMPH # 1.9 10^3/uL (1.5-5.0); LYMPH % 37.6 % (24.0-44.0); MEAN CORPUSCULAR HEMOGLOBIN 27.4 pg (27.0-33.0); MEAN CORPUSCULAR HGB CONC 30.4 g/dl (32.0-36.5); MONO # 0.5 10^3/uL (0.0-0.8); MONO % 9.2 % (2.0-8.0); NEUTROPHILS # 2.6 10^3/uL (1.5-8.5); NEUTROPHILS % 50.4 % (36.0-66.0); PLATELET COUNT, AUTOMATED 177 10^3/uL (150-450); WHITE BLOOD COUNT 5.1 10^3/uL (4.0-10.0)
[2021-02-25 16:43] LABS: ERYTHROCYTE SEDIMENTATION RATE 31 mm/hr (0-30)
== END ==
LOC: M WUC 14:45
PROVIDERS: ATTEND Internal Medicine
DX: M06.9 Rheumatoid arthritis, unspecified (principal)

== ENCOUNTER → 2021-05-26 | Outpatient (CLI) | payer OTHER ==
[~2021-05-26] MED LIST changes: +OMEG500C3 PO
[2021-05-26 16:18] LABS: ALBUMIN 3.6 GM/DL (3.2-5.2); ALT/SGPT 22 U/L (12-78); BASO % 0.2 % (0.0-1.0); BILIRUBIN,DIRECT 0.2 MG/DL (0.0-0.2); BILIRUBIN,TOTAL 0.7 MG/DL (0.2-1.0); BLOOD UREA NITROGEN 10 MG/DL (7-18); C REACTIVE PROTEIN QUANTITATIV 0.61 MG/DL (0.00-0.30); CALCIUM LEVEL 9.1 MG/DL (8.8-10.2); CARBON DIOXIDE LEVEL 31 MEQ/L (21-32); CHLORIDE LEVEL 103 MEQ/L (98-107); CREATININE FOR GFR 0.78 MG/DL (0.55-1.30); EOS # 0.1 10^3/uL (0.0-0.5); EOS % 1.6 % (0.0-3.0); GLOMERULAR FILTRATION RATE > 60.0 (>45); GLUCOSE, FASTING 276 MG/DL (70-100); HEMATOCRIT 37.8 % (36.0-47.0); HEMOGLOBIN 11.7 g/dl (12.0-15.5); LYMPH # 1.5 10^3/uL (1.5-5.0); MEAN CORPUSCULAR HEMOGLOBIN 27.1 pg (27.0-33.0); MEAN CORPUSCULAR VOLUME 87.5 fl (80.0-96.0); MONO # 0.4 10^3/uL (0.0-0.8); MONO % 8.4 % (2.0-8.0); NEUTROPHILS % 59.2 % (36.0-66.0); PLATELET COUNT, AUTOMATED 196 10^3/uL (150-450); POTASSIUM SERUM 4.5 MEQ/L (3.5-5.1); RED BLOOD COUNT 4.32 10^6/uL (4.00-5.40); SODIUM LEVEL 137 MEQ/L (136-145); TOTAL PROTEIN 7.4 GM/DL (6.4-8.2); WHITE BLOOD COUNT 5.1 10^3/uL (4.0-10.0)
[2021-05-26 19:23] LABS: ERYTHROCYTE SEDIMENTATION RATE 30 mm/hr (0-30)
== END ==
LOC: M WUC 12:05
PROVIDERS: ATTEND Internal Medicine
DX: M06.9 Rheumatoid arthritis, unspecified (principal)

== ENCOUNTER → 2021-06-20 | Outpatient (CLI) | payer OTHER ==
[2021-06-20 16:06] LABS: BASO % 0.6 % (0.0-1.0); EOS # 0.1 10^3/uL (0.0-0.5); EOS % 2.3 % (0.0-3.0); HEMATOCRIT 36.6 % (36.0-47.0); HEMOGLOBIN 11.2 g/dl (12.0-15.5); LYMPH # 1.2 10^3/uL (1.5-5.0); LYMPH % 25.6 % (24.0-44.0); MEAN CORPUSCULAR HEMOGLOBIN 27.1 pg (27.0-33.0); MEAN CORPUSCULAR HGB CONC 30.6 g/dl (32.0-36.5); MEAN CORPUSCULAR VOLUME 88.4 fl (80.0-96.0); MONO # 0.5 10^3/uL (0.0-0.8); MONO % 11.2 % (2.0-8.0); NEUTROPHILS # 2.8 10^3/uL (1.5-8.5); NEUTROPHILS % 59.7 % (36.0-66.0); PLATELET COUNT, AUTOMATED 179 10^3/uL (150-450); RED BLOOD COUNT 4.14 10^6/uL (4.00-5.40); WHITE BLOOD COUNT 4.7 10^3/uL (4.0-10.0)
[2021-06-20 16:08] LABS: ALBUMIN 3.6 GM/DL (3.2-5.2); ALT/SGPT 15 U/L (12-78); BILIRUBIN,DIRECT 0.2 MG/DL (0.0-0.2); BILIRUBIN,TOTAL 0.8 MG/DL (0.2-1.0); BLOOD UREA NITROGEN 10 MG/DL (7-18); C REACTIVE PROTEIN QUANTITATIV 1.38 MG/DL (0.00-0.30); CALCIUM LEVEL 9.1 MG/DL (8.8-10.2); CARBON DIOXIDE LEVEL 29 MEQ/L (21-32); CHLORIDE LEVEL 101 MEQ/L (98-107); CREATININE FOR GFR 0.83 MG/DL (0.55-1.30); GLOMERULAR FILTRATION RATE > 60.0 (>45); GLUCOSE, FASTING 296 MG/DL (70-100); POTASSIUM SERUM 3.9 MEQ/L (3.5-5.1); SODIUM LEVEL 135 MEQ/L (136-145); TOTAL PROTEIN 7.4 GM/DL (6.4-8.2)
[2021-06-20 16:43] LABS: ERYTHROCYTE SEDIMENTATION RATE 35 mm/hr (0-30)
== END ==
LOC: M WUC 10:30
PROVIDERS: ATTEND Internal Medicine
DX: M06.9 Rheumatoid arthritis, unspecified (principal)

== ENCOUNTER → 2021-06-26 | Outpatient (CLI) | payer OTHER | LOC: M WHC 12:35 | PROVIDERS: ATTEND Specialist | DX: Z12.31 Encounter for screening mammogram for malignant neoplasm of breast (principal) ==

== ENCOUNTER → 2021-07-15 | Outpatient (CLI) | payer OTHER ==
[2021-07-15 12:57] LABS: BASO % 0.4 % (0.0-1.0); EOS # 0.1 10^3/uL (0.0-0.5); EOS % 2.6 % (0.0-3.0); HEMATOCRIT 36.9 % (36.0-47.0); HEMOGLOBIN 11.3 g/dl (12.0-15.5); LYMPH # 1.6 10^3/uL (1.5-5.0); LYMPH % 32.4 % (24.0-44.0); MEAN CORPUSCULAR HEMOGLOBIN 26.8 pg (27.0-33.0); MEAN CORPUSCULAR HGB CONC 30.6 g/dl (32.0-36.5); MEAN CORPUSCULAR VOLUME 87.4 fl (80.0-96.0); MONO # 0.4 10^3/uL (0.0-0.8); MONO % 8.7 % (2.0-8.0); NEUTROPHILS # 2.8 10^3/uL (1.5-8.5); NEUTROPHILS % 55.1 % (36.0-66.0); PLATELET COUNT, AUTOMATED 189 10^3/uL (150-450); RED BLOOD COUNT 4.22 10^6/uL (4.00-5.40); WHITE BLOOD COUNT 5.1 10^3/uL (4.0-10.0)
[2021-07-15 13:36] LABS: ERYTHROCYTE SEDIMENTATION RATE 45 mm/hr (0-30)
[2021-07-15 13:41] LABS: ALBUMIN 3.8 GM/DL (3.2-5.2); ALT/SGPT 13 U/L (12-78); BILIRUBIN,DIRECT 0.3 MG/DL (0.0-0.2); BILIRUBIN,TOTAL 0.9 MG/DL (0.2-1.0); BLOOD UREA NITROGEN 15 MG/DL (7-18); C REACTIVE PROTEIN QUANTITATIV 1.07 MG/DL (0.00-0.30); CALCIUM LEVEL 9.5 MG/DL (8.8-10.2); CARBON DIOXIDE LEVEL 29 MEQ/L (21-32); CHLORIDE LEVEL 101 MEQ/L (98-107); CREATININE FOR GFR 0.94 MG/DL (0.55-1.30); GLOMERULAR FILTRATION RATE > 60.0 (>45); GLUCOSE, FASTING 289 MG/DL (70-100); POTASSIUM SERUM 3.9 MEQ/L (3.5-5.1); SODIUM LEVEL 135 MEQ/L (136-145); TOTAL PROTEIN 7.7 GM/DL (6.4-8.2)
== END ==
LOC: M WUC 10:45
PROVIDERS: ATTEND Internal Medicine
DX: M06.39 Rheumatoid nodule, multiple sites (principal)

== ENCOUNTER → 2021-08-12 | Outpatient (CLI) | payer OTHER ==
[2021-08-12 16:25] LABS: BASO % 0.4 % (0.0-1.0); EOS # 0.1 10^3/uL (0.0-0.5); EOS % 1.7 % (0.0-3.0); HEMATOCRIT 39.5 % (36.0-47.0); HEMOGLOBIN 11.8 g/dl (12.0-15.5); LYMPH # 1.5 10^3/uL (1.5-5.0); LYMPH % 31.1 % (24.0-44.0); MEAN CORPUSCULAR HEMOGLOBIN 26.9 pg (27.0-33.0); MEAN CORPUSCULAR HGB CONC 29.9 g/dl (32.0-36.5); MONO # 0.4 10^3/uL (0.0-0.8); MONO % 8.7 % (2.0-8.0); NEUTROPHILS # 2.7 10^3/uL (1.5-8.5); NEUTROPHILS % 57.7 % (36.0-66.0); PLATELET COUNT, AUTOMATED 199 10^3/uL (150-450); RED BLOOD COUNT 4.39 10^6/uL (4.00-5.40); WHITE BLOOD COUNT 4.7 10^3/uL (4.0-10.0)
[2021-08-12 16:58] LABS: ALBUMIN 3.8 GM/DL (3.2-5.2); ALT/SGPT 16 U/L (12-78); BILIRUBIN,DIRECT 0.3 MG/DL (0.0-0.2); BILIRUBIN,TOTAL 1.1 MG/DL (0.2-1.0); BLOOD UREA NITROGEN 9 MG/DL (7-18); C REACTIVE PROTEIN QUANTITATIV 0.64 MG/DL (0.00-0.30); CALCIUM LEVEL 9.3 MG/DL (8.8-10.2); CARBON DIOXIDE LEVEL 28 MEQ/L (21-32); CHLORIDE LEVEL 105 MEQ/L (98-107); CREATININE FOR GFR 0.87 MG/DL (0.55-1.30); GLOMERULAR FILTRATION RATE > 60.0 (>45); GLUCOSE, FASTING 139 MG/DL (70-100); SODIUM LEVEL 138 MEQ/L (136-145); TOTAL PROTEIN 7.7 GM/DL (6.4-8.2)
[2021-08-12 17:02] LABS: ERYTHROCYTE SEDIMENTATION RATE 53 mm/hr (0-30)
== END ==
LOC: M WUC 10:56
PROVIDERS: ATTEND Internal Medicine
DX: M06.9 Rheumatoid arthritis, unspecified (principal)

== ENCOUNTER → 2021-09-09 | Outpatient (CLI) | payer OTHER ==
[2021-09-09 14:27] LABS: BASO % 0.2 % (0.0-1.0); EOS # 0.1 10^3/uL (0.0-0.5); EOS % 2.8 % (0.0-3.0); HEMATOCRIT 38.8 % (36.0-47.0); HEMOGLOBIN 11.9 g/dl (12.0-15.5); LYMPH # 1.3 10^3/uL (1.5-5.0); LYMPH % 26.5 % (24.0-44.0); MEAN CORPUSCULAR HGB CONC 30.7 g/dl (32.0-36.5); MEAN CORPUSCULAR VOLUME 88.2 fl (80.0-96.0); MONO # 0.4 10^3/uL (0.0-0.8); MONO % 7.3 % (2.0-8.0); NEUTROPHILS # 3.2 10^3/uL (1.5-8.5); NEUTROPHILS % 62.4 % (36.0-66.0); PLATELET COUNT, AUTOMATED 214 10^3/uL (150-450); WHITE BLOOD COUNT 5.1 10^3/uL (4.0-10.0)
[2021-09-09 14:57] LABS: ALBUMIN 3.6 GM/DL (3.2-5.2); ALT/SGPT 14 U/L (12-78); BILIRUBIN,DIRECT 0.2 MG/DL (0.0-0.2); BILIRUBIN,TOTAL 0.7 MG/DL (0.2-1.0); BLOOD UREA NITROGEN 16 MG/DL (7-18); C REACTIVE PROTEIN QUANTITATIV 2.63 MG/DL (0.00-0.30); CALCIUM LEVEL 9.3 MG/DL (8.8-10.2); CARBON DIOXIDE LEVEL 27 MEQ/L (21-32); CHLORIDE LEVEL 104 MEQ/L (98-107); CREATININE FOR GFR 0.92 MG/DL (0.55-1.30); GLOMERULAR FILTRATION RATE > 60.0 (>45); GLUCOSE, FASTING 224 MG/DL (70-100); POTASSIUM SERUM 3.9 MEQ/L (3.5-5.1); SODIUM LEVEL 138 MEQ/L (136-145); TOTAL PROTEIN 7.8 GM/DL (6.4-8.2)
[2021-09-09 15:16] LABS: ERYTHROCYTE SEDIMENTATION RATE 52 mm/hr (0-30)
== END ==
LOC: M WUC 10:25
PROVIDERS: ATTEND Internal Medicine
DX: M06.9 Rheumatoid arthritis, unspecified (principal)

== ENCOUNTER → 2021-10-07 | Outpatient (CLI) | payer OTHER ==
[2021-10-07 16:43] LABS: BASO % 0.5 % (0.0-1.0); EOS # 0.2 10^3/uL (0.0-0.5); EOS % 4.3 % (0.0-3.0); HEMATOCRIT 38.5 % (36.0-47.0); HEMOGLOBIN 11.4 g/dl (12.0-15.5); LYMPH # 1.3 10^3/uL (1.5-5.0); MEAN CORPUSCULAR HEMOGLOBIN 26.3 pg (27.0-33.0); MEAN CORPUSCULAR HGB CONC 29.6 g/dl (32.0-36.5); MEAN CORPUSCULAR VOLUME 88.7 fl (80.0-96.0); MONO # 0.4 10^3/uL (0.0-0.8); MONO % 9.5 % (2.0-8.0); NEUTROPHILS # 2.4 10^3/uL (1.5-8.5); NEUTROPHILS % 54.8 % (36.0-66.0); PLATELET COUNT, AUTOMATED 212 10^3/uL (150-450); RED BLOOD COUNT 4.34 10^6/uL (4.00-5.40); WHITE BLOOD COUNT 4.4 10^3/uL (4.0-10.0)
[2021-10-07 17:41] LABS: ALBUMIN 3.4 GM/DL (3.2-5.2); ALT/SGPT 13 U/L (12-78); BILIRUBIN,DIRECT 0.1 MG/DL (0.0-0.2); BILIRUBIN,TOTAL 0.7 MG/DL (0.2-1.0); BLOOD UREA NITROGEN 11 MG/DL (7-18); C REACTIVE PROTEIN QUANTITATIV 1.64 MG/DL (0.00-0.30); CALCIUM LEVEL 8.8 MG/DL (8.8-10.2); CARBON DIOXIDE LEVEL 28 MEQ/L (21-32); CHLORIDE LEVEL 102 MEQ/L (98-107); CREATININE FOR GFR 0.77 MG/DL (0.55-1.30); GLOMERULAR FILTRATION RATE > 60.0 (>45); GLUCOSE, FASTING 171 MG/DL (70-100); POTASSIUM SERUM 4.1 MEQ/L (3.5-5.1); SODIUM LEVEL 135 MEQ/L (136-145); TOTAL PROTEIN 8.2 GM/DL (6.4-8.2)
[2021-10-07 18:47] LABS: ERYTHROCYTE SEDIMENTATION RATE 53 mm/hr (0-30)
== END ==
LOC: M WUC 10:51
PROVIDERS: ATTEND Internal Medicine
DX: M06.9 Rheumatoid arthritis, unspecified (principal)

== ENCOUNTER → 2021-12-12 | Outpatient (CLI) | payer OTHER ==
[2021-12-12 13:47] LABS: EOS # 0.2 10^3/uL (0.0-0.5); EOS % 5.2 % (0.0-3.0); HEMATOCRIT 35.8 % (36.0-47.0); HEMOGLOBIN 10.7 g/dl (12.0-15.5); LYMPH # 1.1 10^3/uL (1.5-5.0); LYMPH % 28.6 % (24.0-44.0); MEAN CORPUSCULAR HGB CONC 29.9 g/dl (32.0-36.5); MEAN CORPUSCULAR VOLUME 87.1 fl (80.0-96.0); MONO # 0.2 10^3/uL (0.0-0.8); MONO % 5.7 % (2.0-8.0); NEUTROPHILS # 2.3 10^3/uL (1.5-8.5); NEUTROPHILS % 59.7 % (36.0-66.0); PLATELET COUNT, AUTOMATED 211 10^3/uL (150-450); RED BLOOD COUNT 4.11 10^6/uL (4.00-5.40); WHITE BLOOD COUNT 3.9 10^3/uL (4.0-10.0)
[2021-12-12 14:24] LABS: ERYTHROCYTE SEDIMENTATION RATE 49 mm/hr (0-30)
[2021-12-12 14:43] LABS: ALBUMIN 3.3 GM/DL (3.2-5.2); ALT/SGPT 14 U/L (12-78); BILIRUBIN,DIRECT 0.1 MG/DL (0.0-0.2); BILIRUBIN,TOTAL 0.5 MG/DL (0.2-1.0); BLOOD UREA NITROGEN 11 MG/DL (7-18); C REACTIVE PROTEIN QUANTITATIV 1.15 MG/DL (0.00-0.30); CARBON DIOXIDE LEVEL 27 MEQ/L (21-32); CHLORIDE LEVEL 103 MEQ/L (98-107); CREATININE FOR GFR 0.72 MG/DL (0.55-1.30); GLOMERULAR FILTRATION RATE > 60.0 (>39); GLUCOSE, FASTING 182 MG/DL (70-100); POTASSIUM SERUM 4.4 MEQ/L (3.5-5.1); SODIUM LEVEL 135 MEQ/L (136-145); TOTAL PROTEIN 7.7 GM/DL (6.4-8.2)
== END ==
LOC: M WUC 08:53
PROVIDERS: ATTEND Internal Medicine
DX: M06.9 Rheumatoid arthritis, unspecified (principal)

== ENCOUNTER → 2022-01-08 | Outpatient (CLI) | payer OTHER, MEDICARE ==
[~2022-01-08] MED LIST changes: -OMEG500C3 PO; +[UNRECOGNIZED DRUG - CODE] PO
[2022-01-08 17:04] LABS: BASO % 0.2 % (0.0-1.0); EOS # 0.2 10^3/uL (0.0-0.5); EOS % 4.5 % (0.0-3.0); HEMATOCRIT 36.9 % (36.0-47.0); HEMOGLOBIN 10.9 g/dl (12.0-15.5); LYMPH # 1.2 10^3/uL (1.5-5.0); LYMPH % 27.7 % (24.0-44.0); MEAN CORPUSCULAR HEMOGLOBIN 25.9 pg (27.0-33.0); MEAN CORPUSCULAR HGB CONC 29.5 g/dl (32.0-36.5); MEAN CORPUSCULAR VOLUME 87.6 fl (80.0-96.0); MONO # 0.2 10^3/uL (0.0-0.8); MONO % 5.4 % (2.0-8.0); NEUTROPHILS # 2.8 10^3/uL (1.5-8.5); NEUTROPHILS % 61.5 % (36.0-66.0); PLATELET COUNT, AUTOMATED 234 10^3/uL (150-450); RED BLOOD COUNT 4.21 10^6/uL (4.00-5.40); WHITE BLOOD COUNT 4.5 10^3/uL (4.0-10.0)
[2022-01-08 17:48] LABS: BLOOD UREA NITROGEN 9 MG/DL (7-18); CREATININE FOR GFR 0.75 MG/DL (0.55-1.30); GLUCOSE, FASTING 181 MG/DL (70-100)
[2022-01-08 17:49] LABS: ALBUMIN 3.4 GM/DL (3.2-5.2); ALT/SGPT 14 U/L (12-78); BILIRUBIN,DIRECT 0.2 MG/DL (0.0-0.2); BILIRUBIN,TOTAL 0.7 MG/DL (0.2-1.0); C REACTIVE PROTEIN QUANTITATIV 1.54 MG/DL (0.00-0.30); CALCIUM LEVEL 9.3 MG/DL (8.8-10.2); CARBON DIOXIDE LEVEL 27 MEQ/L (21-32); CHLORIDE LEVEL 103 MEQ/L (98-107); GLOMERULAR FILTRATION RATE > 60.0 (>39); POTASSIUM SERUM 3.7 MEQ/L (3.5-5.1); SODIUM LEVEL 136 MEQ/L (136-145); TOTAL PROTEIN 7.8 GM/DL (6.4-8.2)
[2022-01-08 18:16] LABS: ERYTHROCYTE SEDIMENTATION RATE 44 mm/hr (0-30)
== END ==
LOC: M WUC 10:51
PROVIDERS: ATTEND Internal Medicine
DX: M06.9 Rheumatoid arthritis, unspecified (principal)

== ENCOUNTER → 2022-01-14 | Outpatient (CLI) | payer OTHER, MEDICARE ==
[2022-01-14 12:19] LABS: BASO % 0.2 % (0.0-1.0); EOS # 0.2 10^3/uL (0.0-0.5); EOS % 4.7 % (0.0-3.0); HEMATOCRIT 37.1 % (36.0-47.0); LYMPH # 1.2 10^3/uL (1.5-5.0); LYMPH % 27.3 % (24.0-44.0); MEAN CORPUSCULAR HEMOGLOBIN 25.9 pg (27.0-33.0); MEAN CORPUSCULAR HGB CONC 29.6 g/dl (32.0-36.5); MEAN CORPUSCULAR VOLUME 87.5 fl (80.0-96.0); MONO # 0.3 10^3/uL (0.0-0.8); MONO % 6.1 % (2.0-8.0); NEUTROPHILS # 2.6 10^3/uL (1.5-8.5); PLATELET COUNT, AUTOMATED 240 10^3/uL (150-450); RED BLOOD COUNT 4.24 10^6/uL (4.00-5.40); WHITE BLOOD COUNT 4.3 10^3/uL (4.0-10.0)
[2022-01-14 12:59] LABS: ALBUMIN 3.5 GM/DL (3.2-5.2); ALT/SGPT 14 U/L (12-78); BILIRUBIN,TOTAL 0.5 MG/DL (0.2-1.0); BLOOD UREA NITROGEN 12 MG/DL (7-18); CALCIUM LEVEL 9.2 MG/DL (8.8-10.2); CARBON DIOXIDE LEVEL 27 MEQ/L (21-32); CHLORIDE LEVEL 102 MEQ/L (98-107); CHOLESTEROL LEVEL 176 MG/DL (<200); CREATININE FOR GFR 0.66 MG/DL (0.55-1.30); GLOMERULAR FILTRATION RATE > 60.0 (>39); GLUCOSE, FASTING 111 MG/DL (70-100); HDL CHOLESTEROL 51 MG/DL (>40); LDL CHOLESTEROL 105 MG/DL (<100); NON-HDL-C 125 MG/DL; POTASSIUM SERUM 4.5 MEQ/L (3.5-5.1); SODIUM LEVEL 138 MEQ/L (136-145); TOTAL PROTEIN 7.8 GM/DL (6.4-8.2); TRIGLYCERIDES LEVEL 101 MG/DL (<150)
[2022-01-14 13:06] LABS: CREATININE, URINE 90.5 MG/DL; MALB URINE SIEMENS 6.9 MG/L; MAU/CREAT RATIO 7.6 MCG/MG (0.0-30.0)
[2022-01-14 20:34] LABS: HEMOGLOBIN A1c 8.4 %
== END ==
LOC: M WUC 08:36
PROVIDERS: ATTEND Family Medicine
DX: E11.9 Type 2 diabetes mellitus without complications (principal)

== ENCOUNTER → 2022-02-05 | Outpatient (REF) | payer OTHER, MEDICARE ==
[2022-02-05 14:46] LABS: BASO % 0.2 % (0.0-1.0); EOS # 0.2 10^3/uL (0.0-0.5); EOS % 4.7 % (0.0-3.0); HEMATOCRIT 36.4 % (36.0-47.0); HEMOGLOBIN 10.8 g/dl (12.0-15.5); LYMPH # 1.4 10^3/uL (1.5-5.0); LYMPH % 29.8 % (24.0-44.0); MEAN CORPUSCULAR HGB CONC 29.7 g/dl (32.0-36.5); MEAN CORPUSCULAR VOLUME 87.5 fl (80.0-96.0); MONO # 0.3 10^3/uL (0.0-0.8); MONO % 7.3 % (2.0-8.0); NEUTROPHILS # 2.7 10^3/uL (1.5-8.5); NEUTROPHILS % 57.4 % (36.0-66.0); PLATELET COUNT, AUTOMATED 215 10^3/uL (150-450); RED BLOOD COUNT 4.16 10^6/uL (4.00-5.40); WHITE BLOOD COUNT 4.7 10^3/uL (4.0-10.0)
[2022-02-05 14:54] LABS: BILIRUBIN,DIRECT 0.2 MG/DL (<0.4)
[2022-02-05 14:55] LABS: ALBUMIN 3.5 G/DL (3.2-5.2); ALKALINE PHOSPHATASE 82 U/L (46-116); ALT/SGPT 10 U/L (7.0-40); AST/SGOT 8 U/L (<34); BILIRUBIN,TOTAL 0.6 MG/DL (0.3-1.2); BLOOD UREA NITROGEN 12 MG/DL (9-23); CALCIUM LEVEL 9.1 MG/DL (8.3-10.6); CARBON DIOXIDE LEVEL 29 MMOL/L (20-31); CHLORIDE LEVEL 103 MMOL/L (98-107); CREATININE FOR GFR 0.63 MG/DL (0.55-1.30); GLOMERULAR FILTRATION RATE > 60.0 (>39); GLUCOSE, FASTING 163 MG/DL (74-106); POTASSIUM SERUM 4.2 MMOL/L (3.5-5.1); SODIUM LEVEL 139 MMOL/L (136-145); TOTAL PROTEIN 7.4 G/DL (5.7-8.2)
[2022-02-05 15:23] LABS: ERYTHROCYTE SEDIMENTATION RATE 46 mm/hr (0-30)
== END ==
LOC: M LABWUC 12:59
PROVIDERS: ATTEND Internal Medicine
DX: M06.9 Rheumatoid arthritis, unspecified (principal)

== ENCOUNTER → 2022-03-05 | Outpatient (CLI) | payer OTHER, MEDICARE ==
[2022-03-05 12:34] LABS: BASO % 0.2 % (0.0-1.0); EOS # 0.2 10^3/uL (0.0-0.5); EOS % 4.9 % (0.0-3.0); HEMATOCRIT 35.6 % (36.0-47.0); HEMOGLOBIN 10.6 g/dl (12.0-15.5); LYMPH # 1.3 10^3/uL (1.5-5.0); LYMPH % 32.1 % (24.0-44.0); MEAN CORPUSCULAR HGB CONC 29.8 g/dl (32.0-36.5); MEAN CORPUSCULAR VOLUME 87.5 fl (80.0-96.0); MONO # 0.2 10^3/uL (0.0-0.8); MONO % 5.6 % (2.0-8.0); NEUTROPHILS # 2.3 10^3/uL (1.5-8.5); NEUTROPHILS % 56.5 % (36.0-66.0); PLATELET COUNT, AUTOMATED 185 10^3/uL (150-450); RED BLOOD COUNT 4.07 10^6/uL (4.00-5.40); WHITE BLOOD COUNT 4.1 10^3/uL (4.0-10.0)
[2022-03-05 12:46] LABS: ERYTHROCYTE SEDIMENTATION RATE 76 mm/hr (0-30)
[2022-03-05 12:50] LABS: ALBUMIN 3.3 G/DL (3.2-5.2); ALKALINE PHOSPHATASE 93 U/L (46-116); ALT/SGPT < 9 U/L (7.0-40); AST/SGOT 12 U/L (<34); BILIRUBIN,DIRECT 0.2 MG/DL (<0.4); BILIRUBIN,TOTAL 0.6 MG/DL (0.3-1.2); BLOOD UREA NITROGEN 11 MG/DL (9-23); CALCIUM LEVEL 9.2 MG/DL (8.3-10.6); CARBON DIOXIDE LEVEL 29 MMOL/L (20-31); CHLORIDE LEVEL 102 MMOL/L (98-107); GLOMERULAR FILTRATION RATE > 60.0 (>39); GLUCOSE, FASTING 216 MG/DL (74-106); POTASSIUM SERUM 4.5 MMOL/L (3.5-5.1); SODIUM LEVEL 138 MMOL/L (136-145); TOTAL PROTEIN 7.2 G/DL (5.7-8.2)
== END ==
LOC: M WUC 10:08
PROVIDERS: ATTEND Internal Medicine
DX: M06.9 Rheumatoid arthritis, unspecified (principal)

== ENCOUNTER → 2022-05-20 | Outpatient (CLI) | payer MEDICAID, MEDICARE, OTHER ==
[~2022-05-20] MED LIST changes: +JARD1TAB PO; +LEFL1TAB4 PO; +NYST-38 PO; -NYST50SS PO; +ROSU20TA5 PO
== END ==
LOC: M LABSMTC 09:48
PROVIDERS: ATTEND Anesthesiology
DX: Z01.818 Encounter for other preprocedural examination (principal); Z11.52 Encounter for screening for COVID-19

== ENCOUNTER 2022-05-25 06:06 | Day surgery (SDC) | payer OTHER ==
[~2022-05-25] VITALS: Ht 162.6 cm; Wt 82.7 kg
[~2022-05-25 06:06] MED LIST changes: +NS 1,000 ML IV ONE
[2022-05-25] MEDS ORDERED: propofoL 500 MG/50 ML VIAL As Ordered ONE (07:25)
[2022-05-25] MEDS ORDERED: LIDOCAINE 2% 100MG/5ML SDV (FOR ANES.) As Ordered ONE (07:25)
[2022-05-25 08:28] VITALS: BP 141/65
== END 2022-05-25 08:40 | disposition home or self-care (01) ==
LOC: M OPP 06:06
PROVIDERS: ATTEND Internal Medicine Gastroenterology
DX: Z12.11 Encounter for screening for malignant neoplasm of colon (principal); K63.5 Polyp of colon; K57.30 Diverticulosis of large intestine without perforation or abscess without bleeding; K64.4 Residual hemorrhoidal skin tags; K64.8 Other hemorrhoids; E11.9 Type 2 diabetes mellitus without complications; E78.00 Pure hypercholesterolemia, unspecified; M06.9 Rheumatoid arthritis, unspecified; Z79.02 Long term (current) use of antithrombotics/antiplatelets; Z79.84 Long term (current) use of oral hypoglycemic drugs; Z79.811 Long term (current) use of aromatase inhibitors; Z79.899 Other long term (current) drug therapy; Z85.3 Personal history of malignant neoplasm of breast; Z92.3 Personal history of irradiation; Z80.1 Family history of malignant neoplasm of trachea, bronchus and lung; Z80.3 Family history of malignant neoplasm of breast; Z80.42 Family history of malignant neoplasm of prostate

== ENCOUNTER → 2022-06-25 | Outpatient (CLI) | payer OTHER, MEDICARE ==
[~2022-06-25] MED LIST changes: -NS 1,000 ML IV ONE
[2022-06-25 13:35] LABS: BASO % 0.3 % (0.0-1.0); EOS # 0.3 10^3/uL (0.0-0.5); EOS % 9.1 % (0.0-3.0); HEMATOCRIT 38.7 % (36.0-47.0); HEMOGLOBIN 11.5 g/dl (12.0-15.5); LYMPH # 1.2 10^3/uL (1.5-5.0); LYMPH % 33.3 % (24.0-44.0); MEAN CORPUSCULAR HEMOGLOBIN 26.4 pg (27.0-33.0); MEAN CORPUSCULAR HGB CONC 29.7 g/dl (32.0-36.5); MEAN CORPUSCULAR VOLUME 88.8 fl (80.0-96.0); MONO # 0.2 10^3/uL (0.0-0.8); MONO % 6.2 % (2.0-8.0); NEUTROPHILS # 1.9 10^3/uL (1.5-8.5); NEUTROPHILS % 50.6 % (36.0-66.0); PLATELET COUNT, AUTOMATED 184 10^3/uL (150-450); RED BLOOD COUNT 4.36 10^6/uL (4.00-5.40); WHITE BLOOD COUNT 3.7 10^3/uL (4.0-10.0)
[2022-06-25 13:51] LABS: ERYTHROCYTE SEDIMENTATION RATE 82 mm/hr (0-30)
[2022-06-25 14:04] LABS: ALBUMIN 3.2 G/DL (3.2-5.2); ALKALINE PHOSPHATASE 80 U/L (46-116); ALT/SGPT < 9 U/L (7.0-40); AST/SGOT 11 U/L (<34); BILIRUBIN,DIRECT 0.2 MG/DL (<0.4); BILIRUBIN,TOTAL 0.7 MG/DL (0.3-1.2); BLOOD UREA NITROGEN 9 MG/DL (9-23); CALCIUM LEVEL 8.6 MG/DL (8.3-10.6); CARBON DIOXIDE LEVEL 29 MMOL/L (20-31); CHLORIDE LEVEL 103 MMOL/L (98-107); CREATININE FOR GFR 0.56 MG/DL (0.55-1.30); GLOMERULAR FILTRATION RATE > 60.0 (>39); GLUCOSE, FASTING 231 MG/DL (74-106); POTASSIUM SERUM 4.4 MMOL/L (3.5-5.1); SODIUM LEVEL 136 MMOL/L (136-145); TOTAL PROTEIN 7.3 G/DL (5.7-8.2)
== END ==
LOC: M WUC 10:53
PROVIDERS: ATTEND Internal Medicine
DX: M06.9 Rheumatoid arthritis, unspecified (principal)

== ENCOUNTER → 2022-06-29 | Outpatient (CLI) | payer OTHER | LOC: M WHC 10:39 | PROVIDERS: ATTEND Family Medicine | DX: Z12.31 Encounter for screening mammogram for malignant neoplasm of breast (principal); Z85.3 Personal history of malignant neoplasm of breast; Z90.12 Acquired absence of left breast and nipple ==

== ENCOUNTER → 2022-07-23 | Outpatient (CLI) | payer OTHER ==
[2022-07-23 13:05] LABS: BASO % 0.2 % (0.0-1.0); EOS # 0.3 10^3/uL (0.0-0.5); EOS % 6.6 % (0.0-3.0); HEMATOCRIT 37.9 % (36.0-47.0); HEMOGLOBIN 11.4 g/dl (12.0-15.5); LYMPH # 1.1 10^3/uL (1.5-5.0); LYMPH % 24.2 % (24.0-44.0); MEAN CORPUSCULAR HEMOGLOBIN 26.2 pg (27.0-33.0); MEAN CORPUSCULAR HGB CONC 30.1 g/dl (32.0-36.5); MEAN CORPUSCULAR VOLUME 87.1 fl (80.0-96.0); MONO # 0.2 10^3/uL (0.0-0.8); MONO % 5.1 % (2.0-8.0); NEUTROPHILS # 2.9 10^3/uL (1.5-8.5); PLATELET COUNT, AUTOMATED 185 10^3/uL (150-450); RED BLOOD COUNT 4.35 10^6/uL (4.00-5.40); WHITE BLOOD COUNT 4.5 10^3/uL (4.0-10.0)
[2022-07-23 13:30] LABS: ERYTHROCYTE SEDIMENTATION RATE 75 mm/hr (0-30)
[2022-07-23 13:39] LABS: ALBUMIN 3.2 G/DL (3.2-5.2); ALKALINE PHOSPHATASE 98 U/L (46-116); ALT/SGPT 11 U/L (7.0-40); AST/SGOT 19 U/L (<34); BILIRUBIN,DIRECT 0.2 MG/DL (<0.4); BILIRUBIN,TOTAL 0.8 MG/DL (0.3-1.2); BLOOD UREA NITROGEN 12 MG/DL (9-23); CALCIUM LEVEL 8.6 MG/DL (8.3-10.6); CARBON DIOXIDE LEVEL 29 MMOL/L (20-31); CHLORIDE LEVEL 103 MMOL/L (98-107); CREATININE FOR GFR 0.61 MG/DL (0.55-1.30); GLOMERULAR FILTRATION RATE > 60.0 (>39); GLUCOSE, FASTING 263 MG/DL (74-106); POTASSIUM SERUM 4.6 MMOL/L (3.5-5.1); SODIUM LEVEL 137 MMOL/L (136-145)
== END ==
LOC: M WUC 09:56
PROVIDERS: ATTEND Internal Medicine
DX: M06.9 Rheumatoid arthritis, unspecified (principal)

== ENCOUNTER 2022-10-20 13:07 | Day surgery (SDC) | payer OTHER ==
[~2022-10-20] VITALS: Ht 162.6 cm; Wt 76.5 kg
[~2022-10-20 13:07] MED LIST changes: +AMIT10TA7 PO; +NS 1,000 ML IV ONE; -ROSU20TA5 PO; +ROSU20TA61 PO; +propofoL 200 MG/20 ML VIAL As Ordered ONE
[2022-10-20 15:10] VITALS: TEMP 96.3
[2022-10-20 16:00] VITALS: BP 120/86; O2SAT 99
== END 2022-10-20 16:11 | disposition home or self-care (01) ==
LOC: M OPP 13:07
PROVIDERS: ATTEND Internal Medicine Gastroenterology
DX: Z86.010 Personal history of colon polyps (principal); K57.30 Diverticulosis of large intestine without perforation or abscess without bleeding; K64.4 Residual hemorrhoidal skin tags; K64.8 Other hemorrhoids; Z79.02 Long term (current) use of antithrombotics/antiplatelets; Z79.84 Long term (current) use of oral hypoglycemic drugs; Z79.811 Long term (current) use of aromatase inhibitors; Z79.899 Other long term (current) drug therapy

== ENCOUNTER → 2022-12-18 | Outpatient (REF) | payer OTHER ==
[~2022-12-18] MED LIST changes: -NS 1,000 ML IV ONE; -propofoL 200 MG/20 ML VIAL As Ordered ONE
[2022-12-18 17:22] LABS: BASO % 0.2 % (0.0-1.0); EOS # 0.3 10^3/uL (0.0-0.5); EOS % 6.1 % (0.0-3.0); HEMATOCRIT 39.9 % (36.0-47.0); LYMPH # 1.3 10^3/uL (1.5-5.0); LYMPH % 26.4 % (24.0-44.0); MEAN CORPUSCULAR HEMOGLOBIN 26.1 pg (27.0-33.0); MEAN CORPUSCULAR HGB CONC 30.1 g/dl (32.0-36.5); MEAN CORPUSCULAR VOLUME 86.9 fl (80.0-96.0); MONO # 0.2 10^3/uL (0.0-0.8); MONO % 3.6 % (2.0-8.0); NEUTROPHILS % 63.3 % (36.0-66.0); PLATELET COUNT, AUTOMATED 221 10^3/uL (150-450); RED BLOOD COUNT 4.59 10^6/uL (4.00-5.40); WHITE BLOOD COUNT 4.7 10^3/uL (4.0-10.0)
[2022-12-18 17:37] LABS: ERYTHROCYTE SEDIMENTATION RATE 83 mm/hr (0-30)
[2022-12-18 17:44] LABS: ALBUMIN 3.7 G/DL (3.2-5.2); ALKALINE PHOSPHATASE 98 U/L (46-116); ALT/SGPT < 9 U/L (7.0-40); AST/SGOT 12 U/L (<34); BILIRUBIN,DIRECT 0.2 MG/DL (<0.4); BILIRUBIN,TOTAL 0.5 MG/DL (0.3-1.2); BLOOD UREA NITROGEN 10 MG/DL (9-23); CALCIUM LEVEL 9.4 MG/DL (8.3-10.6); CARBON DIOXIDE LEVEL 29 MMOL/L (20-31); CHLORIDE LEVEL 102 MMOL/L (98-107); CREATININE FOR GFR 0.57 MG/DL (0.55-1.30); GLOMERULAR FILTRATION RATE > 60.0 (>39); GLUCOSE, FASTING 162 MG/DL (74-106); POTASSIUM SERUM 4.7 MMOL/L (3.5-5.1); SODIUM LEVEL 137 MMOL/L (136-145); TOTAL PROTEIN 7.8 G/DL (5.7-8.2)
== END ==
LOC: M SFHCRHEU 12:24
PROVIDERS: ATTEND Internal Medicine
DX: M06.9 Rheumatoid arthritis, unspecified (principal)